=== PATIENT | male | born 1990 | race Caucasian/White ===

== ENCOUNTER 2017-07-10 17:19 | Emergency (ER) | payer MEDICAID, OTHER ==
[~2017-07-10] VITALS: Ht 165.1 cm; Wt 82.6 kg
[2017-07-10 17:23] VITALS: Ht 165.1 cm; Wt 82.6 kg
[2017-07-10] MEDS ORDERED: HYDR26CR PR (18:01)
--- NOTE | 2017-07-10 18:11 | ERD ---
ER Documentation Chief Complaint Chief Complaint Rectal pain, bleeding HPI 27-year-old male is complaining of rectal pain, itching, with bright red on the tissue when he wiped. Patient stated that it has been going on for about a year. He notes that he has hemorrhoid. The pain comes and goes. Lately, he has 2-3 bowel movements per day, with small amounts of watery diarrhea each time. Denies abdominal pain. Denies vomiting. Denies fever or chills. ROS All systems reviewed and are negative except as per history of present illness. Medications Home Meds Active Scripts Hydrocortisone* Rectal (Preparation H* Cream) 1% - 26 Gm Cream.gm., 1 APPLIC VT TID Y for HEMORROID PAIN/ITCHING, #1 TUB Prov:SHARMAINE CALVIN. 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 PMhx/Soc Medical and Surgical Hx: pt denies Medical Hx, pt denies Surgical Hx Hx Substance Use: No Hx Tobacco Use: Yes Smoking Status: Current some day smoker Physical Exam Vitals Vital Signs Date Time Temp Pulse Resp B/P Pulse Ox O2 Delivery O2 Flow Rate FiO2 07/10/17 17:23 98.9 78 20 135/94 99 Physical Exam General: Well-developed, well-nourished, conscious and coherent, in no distress Skin: Warm and dry without rash, good texture and turgor Head: Normocephalic without evidence of trauma Eyes: Sclera and conjunctivae normal; pupils equal, round, and reactive to light; extraocular movements are intact Chest: Normal AP diameter. Good expansion without retractions. Nontender. Lungs are clear to auscultate bilaterally with good tidal volume Heart: Regular rate and rhythm. No murmur, rub, or gallops heard Abdomen: Soft and nontender without masses, guarding, or rebound. Bowel sounds are active. No hepatosplenomegaly Rectal: Hemorrhoid skin tag in the anterior aspect of the anus, small superficial excoriation noted in the perianal region. Nontender, no anal fissure. Extremities: Full range of motion. Good strength bilaterally. No clubbing, cyanosis, or edema. Peripheral pulses are intact. Sensation intact Neuro: Alert and oriented 4, GCS 15. Cranial nerves grossly intact. Motor and sensory exams nonfocal. Moves all extremities. Speech clear. Gait normal Procedures/MDM Well-appearing 27-year-old male with history of hemorrhoids complaining of on and off rectal pain and small amount of bleeding. Patient does not have a thrombosed hemorrhoid at this time. I doubt diverticulitis, colitis, Crohn's disease ease, or colon cancer. Patient appears well, stable for discharge and outpatient management. Medical decision making shared with patient and family. Education provided to patient and family. Patient and family expressed understanding of the plan. Medications on discharge: Preparation H cream. Follow-up: Primary care provider in 2-3 days or return to ED if worse. Disclaimer: Inadvertent spelling and grammatical errors are likely due to EHR/ dictation software use and do not reflect on the overall quality of patient care. Also, please note that the electronic time recorded on this note does not necessarily reflect the actual time of the patient encounter. Departure Diagnosis: Primary Impression: Hemorrhoidal skin tag Condition: Stable Patient Instructions: Understanding Hemorrhoids Referrals: [facility] YOU HAVE RECEIVED A MEDICAL SCREENING EXAM AND THE RESULTS INDICATE THAT YOU DO NOT HAVE A CONDITION THAT REQUIRES URGENT TREATMENT IN THE EMERGENCY DEPARTMENT. FURTHER EVALUATION AND TREATMENT OF YOUR CONDITION CAN WAIT UNTIL YOU ARE SEEN IN YOUR DOCTORS OFFICE WITHIN THE NEXT 1-2 DAYS. IT IS YOUR RESPONSIBILITY TO MAKE AN APPOINTMENT FOR FOLOW-UP CARE. IF YOU HAVE A PRIMARY DOCTOR --you should call your primary doctor and schedule an appointment IF YOU DO NOT HAVE A PRIMARY DOCTOR YOU CAN CALL OUR PHYSICIAN REFERRAL HOTLINE AT IF YOU CAN NOT AFFORD TO SEE A PHYSICIAN YOU CAN CHOSE FROM THE FOLLOWING [facility] [id number] [facility]. [facility] [address] [facility] [facility] [address] [facility]. [facility] [address] [facility]. [facility] [address] [facility]. [facility]. [address] Additional Instructions: Call your primary care doctor TOMORROW for an appointment during the next 2-3 days.See the doctor sooner or return here if your condition worsens before your appointment time. SHARMAINE CALVIN NP Jul 10, 2017 18:11
== END 2017-07-10 18:10 | disposition home or self-care (01) ==
LOC: FTE 17:19
DX: K64.4 Residual hemorrhoidal skin tags (principal); F17.210 Nicotine dependence, cigarettes, uncomplicated
CPT/HCPCS: 99284